=== PATIENT | male | born 1955 | race Caucasian/White ===

== ENCOUNTER 2023-11-27 18:32 | Inpatient (IN) | payer MEDICARE, OTHER ==
[~2023-11-27] VITALS: Ht 175.3 cm; Wt 92.5 kg
[2023-11-27 19:10] LABS: CK-MB VALUE MASS 2.9 NG/ML (<3.6); CREATININE FOR GFR 1.68 MG/DL (0.70-1.30); GLOMERULAR FILTRATION RATE 43.6 (>49); POTASSIUM SERUM 4.2 MMOL/L (3.5-5.1)
[2023-11-27 19:11] LABS: BASO # 0.1 10^3/uL (0.0-0.2); BASO % 0.4 % (0.0-1.0); EOS % 0.2 % (0.0-3.0); HEMATOCRIT 47.2 % (42.0-52.0); HEMOGLOBIN 16.7 g/dl (13.5-17.5); LYMPH # 2.6 10^3/uL (1.5-5.0); LYMPH % 15.2 % (24.0-44.0); MEAN CORPUSCULAR HEMOGLOBIN 31.4 pg (27.0-33.0); MEAN CORPUSCULAR HGB CONC 35.4 g/dl (32.0-36.5); MEAN CORPUSCULAR VOLUME 88.7 fl (80.0-96.0); MONO # 1.3 10^3/uL (0.0-0.8); MONO % 7.3 % (2.0-8.0); NEUTROPHILS # 13.1 10^3/uL (1.5-8.5); NEUTROPHILS % 76.2 % (36.0-66.0); PLATELET COUNT, AUTOMATED 207 10^3/uL (150-450); RED BLOOD COUNT 5.32 10^6/uL (4.30-6.10); WHITE BLOOD COUNT 17.2 10^3/uL (4.0-10.0)
[2023-11-27 19:28] LABS: MB/CK RELATIVE INDEX 0.66 (< OR =4)
[2023-11-27 20:06] LABS: FREE T4 1.4 NG/DL (0.89-1.76); THYROID STIMULATING HORMONE 2.384 uIU/ML (0.55-4.78)
[2023-11-27] MEDS: NS 1,000 ML IV ONE (20:12)
[2023-11-27 20:20] LABS: CK-MB VALUE MASS 3.6 NG/ML (<3.6)
[2023-11-27 20:22] LABS: MB/CK RELATIVE INDEX 0.98 (< OR =4)
[2023-11-27] MEDS ORDERED: ISOVUE-370 76% 100ML VIAL As Ordered ONE (21:34)
[2023-11-27] MEDS: MECLIZINE 25 MG TABLET PO ONE (21:39)
[2023-11-27 22:25] LABS: APPEARANCE, URINE CLEAR (CLEAR); BACTERIA, URINE AUTO NEGATIVE (NEGATIVE); BILIRUBIN, URINE AUTO NEGATIVE (NEGATIVE); BLOOD, URINE BLOOD NEGATIVE (NEGATIVE); COLOR, URINE YELLOW (YELLOW); GLUCOSE, URINE (UA) AUTO NEGATIVE (NEGATIVE); KETONE, URINE AUTO 1+ mg/dL (NEGATIVE); LEUKOCYTE ESTERASE, URINE AUTO NEGATIVE (NEGATIVE); MUCUS, URINE SMALL (NEGATIVE); NITRITE, URINE AUTO NEGATIVE (NEGATIVE); PROTEIN, URINE AUTO NEGATIVE (NEGATIVE); RBC, URINE AUTO 0 /HPF (0-3); SPECIFIC GRAVITY URINE AUTO 1.019 (1.002-1.035); SQUAMOUS EPITHELIAL CELL UR AU 0 /HPF (0-6); UROBILINOGEN, URINE AUTO 0.2 mg/dL (0.0-2.0); WBC, URINE AUTO 1 /HPF (0-3)
[2023-11-28] MEDS: ASPIRIN 325 MG TAB PO ONE (00:42)
[2023-11-28] MEDS: ALPRAZolam 0.5 MG TAB PO ONE (00:43)
[2023-11-28] MEDS ORDERED: LISI20TA35 PO (01:37)
[2023-11-28] MEDS ORDERED: ALPR0.5T3 PO (01:37)
[2023-11-28] MEDS ORDERED: OYST1TAB PO (01:37)
[2023-11-28] MEDS ORDERED: ROSU10TA61 PO (01:37)
[2023-11-28] MEDS ORDERED: D200CAP PO (01:38)
[2023-11-28] MEDS ORDERED: VITA200030 PO (01:38)
[2023-11-28] MEDS ORDERED: META0.52 PO (01:40)
[2023-11-28] MEDS ORDERED: HOME MED LIST COMPLETE! XX SCH (01:40)
[2023-11-28] MEDS ORDERED: CVS1CHW58 PO (01:40)
[2023-11-28] MEDS ORDERED: INUL2TAB PO (01:40)
[2023-11-28] MEDS ORDERED: ACETAMINOPHEN TAB 650MG DOSE (2X325MG) PO PRN (02:10)
[2023-11-28] MEDS ORDERED: MOM 30ML SUSPENSION UDC PO PRN (02:10)
[2023-11-28] MEDS ORDERED: ONDANSETRON 4MG 2ML VIAL IV PRN (02:20)
[2023-11-28 03:23] LABS: PROCALCITONIN 0.11 ng/ml
[2023-11-28 04:32] VITALS: BP 129/75; TEMP 98.8; O2SAT 99
[2023-11-28 04:42] VITALS: BP 125/75
[2023-11-28 04:46] VITALS: BP 121/83
[2023-11-28] MEDS: NS 1,000 ML IV SCH (05:10)
[2023-11-28 06:01] LABS: HEMATOCRIT 42.9 % (42.0-52.0); HEMOGLOBIN 15.2 g/dl (13.5-17.5); MEAN CORPUSCULAR HEMOGLOBIN 31.8 pg (27.0-33.0); MEAN CORPUSCULAR HGB CONC 35.4 g/dl (32.0-36.5); MEAN CORPUSCULAR VOLUME 89.7 fl (80.0-96.0); PLATELET COUNT, AUTOMATED 144 10^3/uL (150-450); RED BLOOD COUNT 4.78 10^6/uL (4.30-6.10); WHITE BLOOD COUNT 8.1 10^3/uL (4.0-10.0)
[2023-11-28 06:18] LABS: ALBUMIN 3.8 G/DL (3.2-5.2); ALKALINE PHOSPHATASE 57 U/L (46-116); ALT/SGPT 22 U/L (7.0-40); AST/SGOT 18 U/L (<34); BILIRUBIN,TOTAL 1.4 MG/DL (0.3-1.2); BLOOD UREA NITROGEN 21 MG/DL (9-23); CALCIUM LEVEL 9.3 MG/DL (8.3-10.6); CARBON DIOXIDE LEVEL 26 MMOL/L (20-31); CHLORIDE LEVEL 107 MMOL/L (98-107); CREATININE FOR GFR 1.12 MG/DL (0.70-1.30); GLOMERULAR FILTRATION RATE > 60.0 (>49); GLUCOSE, FASTING 79 MG/DL (74-106); POTASSIUM SERUM 3.4 MMOL/L (3.5-5.1); SODIUM LEVEL 140 MMOL/L (136-145); TOTAL PROTEIN 6.3 G/DL (5.7-8.2)
[2023-11-28 08:21] LABS: CHOLESTEROL LEVEL 117 MG/DL (<200); CHOLESTEROL RISK RATIO 2.68 (<5); HDL CHOLESTEROL 43.5 MG/DL (>40); LDL CHOLESTEROL 57.9 MG/DL (<100); NON-HDL-C 73.5 MG/DL; TRIGLYCERIDES LEVEL 78 MG/DL (<150)
[2023-11-28] MEDS: ASPIRIN 81MG CHEW TABLET PO SCH (08:37)
[2023-11-28] MEDS: OYSTER SHELL CALCIUM 500 MG TAB PO SCH (08:37)
[2023-11-28] MEDS: ROSUVASTATIN 10 MG TAB (CRESTOR) PO SCH (08:37)
[2023-11-28] MEDS: METAMUCIL (PSYLLIUM) PACKET PO SCH (08:38)
[2023-11-28] MEDS: ALPRAZolam 0.5 MG TAB PO PRN (08:44)
[2023-11-28] MEDS: HEPARIN SOD (PORCINE) 5000UNITS/ML 1ML VIAL/SYRINGE SQ SCH (08:46)
[2023-11-28] MEDS ORDERED: PROHANCE 279.3MG/ML 15ML VIAL As Ordered ONE (10:12)
[2023-11-28] MEDS ORDERED: PROHANCE 279.3MG/ML 5ML VIAL As Ordered ONE (10:12)
[2023-11-28 11:35] VITALS: BP 118/76
[2023-11-28 12:00] VITALS: BP_SYST 102; BP_SYST 118; BP_DIAS 69; BP_DIAS 76; TEMP 99; O2SAT 97
[2023-11-28] MEDS ORDERED: ROSU40TA63 PO (15:39)
[2023-11-28] MEDS ORDERED: ASPI81CH33 PO (15:39)
[2023-11-28] MEDS ORDERED: CLOP75TA99 PO (15:39)
[2023-11-28] MEDS ORDERED: ROSUVASTATIN 10 MG TAB (CRESTOR) PO SCH (21:00)
[2023-11-29] MEDS ORDERED: amLODIPine 5 MG TAB PO SCH (09:00)
== END 2023-11-28 17:35 | disposition home or self-care (01) | DRG 312 ==
LOC: M ED 18:32 → M ED INP 11-28 02:06 → M MSPAV 11-28 04:27
PROVIDERS: ADMIT Student in an Organized Health Care Education/Training Program; ATTEND Internal Medicine
DX: R55 Syncope and collapse (principal); N17.9 Acute kidney failure, unspecified; I25.10 Atherosclerotic heart disease of native coronary artery without angina pectoris; N18.9 Chronic kidney disease, unspecified; I12.9 Hypertensive chronic kidney disease with stage 1 through stage 4 chronic kidney disease, or unspecified chronic kidney disease; F41.9 Anxiety disorder, unspecified; E78.5 Hyperlipidemia, unspecified; R91.1 Solitary pulmonary nodule; I65.22 Occlusion and stenosis of left carotid artery; D72.829 Elevated white blood cell count, unspecified; Z79.899 Other long term (current) drug therapy; Z79.82 Long term (current) use of aspirin; Z88.8 Allergy status to other drugs, medicaments and biological substances; Z85.46 Personal history of malignant neoplasm of prostate; K44.9 Diaphragmatic hernia without obstruction or gangrene